=== PATIENT | male | born 1995 | race Caucasian/White ===

== ENCOUNTER 2020-11-06 17:47 | Emergency (ER) | payer SELFPAY ==
[2020-11-06 18:00] VITALS: BP 127/82; PULSE 120; RESP 14; TEMP 37; O2SAT 100; BMI 18.5
--- NOTE | 2020-11-06 18:17 | PC.NURSE ---
pt trying to leave, pt ripping out iv. pt educated that he must be evaluated by a provider. security to bedside.
--- NOTE | 2020-11-06 18:39 | ED_ITS ---
HPI - Overdose General Chief Complaint: Overdose Stated Complaint: OVERDOSE,10 MG NARCAN Time Seen by Provider: 11/06/20 18:38 Source: patient and EMS Mode of arrival: EMS Limitations: no limitations History of Present Illness HPI Narrative: Patient took 15 mg Percocet and 1 mg Xanax became unresponsive back for short time and patient received 10 mg of intranasal Narcan and responded to that. Patient said he wanted to get high with history of substance abuse in the past refused to get any help MD complaint: accidental overdose Related Data Allergies Allergy/AdvReac Type Severity Reaction Status Date / Time nsaids Allergy Unknown upsets Uncoded 12/13/15 00:00 stomach Review of Systems Review of Systems: Constitutional : No Weight loss, No Fever, No Chills ENT/Mouth : No sore throat, No Rhinorrhea Eyes: No Eye Pain, No Swelling Cardiovascular : No Chest Pain, no palpitations Respiratory : No Cough, No Sputum, no shortness of breath Gastrointestinal : no Nausea, No Vomiting, No Diarrhea, No abdominal Pain, no black stools Genitourinary : No Dysuria, No Urinary Frequency Musculoskeletal : No joint pain, No Myalgias, No Joint Swelling Skin : No Skin Lesions, No rash Neuro : No Weakness, No Numbness, No Dizziness, No Headache Psych : No Anxiety/Panic, No Depression Heme/Lymph: No Bruising, No Lymphadenopathy Endocrine : No Polyuria, No Polydipsia All other systems reviewed and are negative [facility] Social History Social History Alcohol intake: never Use of substances other than those prescribed or required for medical reasons: Yes Advance Directives: No Advance Directives Information Provided: Yes Physical Exam Vital Signs: Vital Signs: Last Vital Signs Temp 98.9 F 11/06/20 19:38 Pulse 93 11/06/20 19:38 Resp 18 11/06/20 19:38 BP 101/41 L 11/06/20 19:38 Pulse Ox 98 11/06/20 19:38 Body Mass Index 18.5 Appearance: Alert. Oriented X3. No acute distress. Eyes: PERRLA, No Nystagmus ENT: Pharynx normal. Oral Mucosa moist Neck: Normal inspection. Neck supple. CVS: Normal heart rate and rhythm. Pulses normal. Respiratory: No respiratory distress. Equal air entry bilateral, no wheezing/rales/rhonchi Abdomen: Soft and nontender. Bowel sounds are present, no mass palpable, no CVA tenderness Skin: Skin warm and dry. Normal skin color. Normal skin turgor. Extremities: No lower extremity edema. No calf tenderness Neuro: Oriented X 3. No motor deficit. No sensory deficit.No cerebellar signs , cranial nerves II-XII intact MDM - Overdose MDM Narrative Medical decision making narrative: Patient alert oriented x3 saturating 98% room air will discharge patient home patient refused any help for detox Discharge Plan Discharge Clinical Impression: Accidental opiate poisoning Patient Disposition: Home, Self-Care Instructions: Narcotic Use Disorder (ED) Additional Instructions: Do not use opiates/narcotics\benzo Follow-up with detox Interventions: ED Discharge Assessment Last Done: 11/06/20 20:23 Discharge Date/Time: 11/06/20 20:23
[2020-11-06 19:38] VITALS: BP 101/41; PULSE 93; RESP 18; TEMP 37.2; O2SAT 98
--- NOTE | 2020-11-06 20:22 | PC.NURSE ---
Narcan take home not available; this RN contacted pharmacy who states that take home narcan was fromo [facility] and not actually stocked by [facility]. Dr Ojeda aware, states ok to DC pt without take home narcan.
== END 2020-11-06 20:23 | disposition home or self-care (01) ==
PROVIDERS: Emergency Provider Internal Medicine
DX: T40.2X1A Poisoning by other opioids, accidental (unintentional), initial encounter (principal); T42.4X1A Poisoning by benzodiazepines, accidental (unintentional), initial encounter; R40.4 Transient alteration of awareness; Y92.9 Unspecified place or not applicable; F19.10 Other psychoactive substance abuse, uncomplicated
CPT/HCPCS: 99285